=== PATIENT | female | born 1980 | race Two or more races ===

== ENCOUNTER 2023-04-26 10:40 | Inpatient (IN) | payer OTHER ==
[~2023-04-26] VITALS: Ht 167.6 cm; Wt 104.3 kg
[2023-04-26] MEDS ORDERED: ATENOLOL-CHLORT1 TAB PO (11:15)
[2023-04-26] MEDS ORDERED: AMLODIPINE-OLM1 EAC2 PO (11:16)
== END 2023-04-30 11:58 | disposition home or self-care (01) | DRG 418 ==
LOC: ER 10:40 → MEDJ 23:51 → SEC-K 23:51 → MEDJ 04-27 02:15
PROVIDERS: Emergency Medicine; General Practice; Surgery; ADMIT Internal Medicine; ATTEND Internal Medicine
PROC: BW21ZZZ Computerized Tomography (CT Scan) of Abdomen and Pelvis (ICD-10-PCS; 2023-04-26)
PROC: 0WQF4ZZ Repair Abdominal Wall, Percutaneous Endoscopic Approach (ICD-10-PCS; 2023-04-29)
PROC: 0FT44ZZ Resection of Gallbladder, Percutaneous Endoscopic Approach (ICD-10-PCS; principal; 2023-04-29 18:00)
DX: K80.00 Calculus of gallbladder with acute cholecystitis without obstruction (principal); N39.0 Urinary tract infection, site not specified; K43.9 Ventral hernia without obstruction or gangrene; E86.0 Dehydration; E87.6 Hypokalemia; I10 Essential (primary) hypertension; Z20.822 Contact with and (suspected) exposure to COVID-19